=== PATIENT | female | born 1955 | race Caucasian/White ===

== ENCOUNTER → 2017-08-25 | Outpatient (CLI) | payer OTHER ==
[~2017-08-25] MED LIST: AMOCLA875 PO; BUPR100; Coumadin6 MG PO; OXYACE7.5T PO; VERA120ERB PO; WARF4 PO; WATER PILL
== END | disposition home or self-care (01) ==
LOC: LAB SHORT 07:39 → PLD 07:39
DX: D22.5 Melanocytic nevi of trunk (principal)
CPT/HCPCS: 88305